=== PATIENT | male | born 1965 | race African-American/Black ===

== ENCOUNTER → 2018-06-15 | Outpatient (CLI) | payer MEDICAID | END | disposition home or self-care (01) | LOC: Rad HDHVI 08:21 | PROVIDERS: ATTEND Internal Medicine Cardiovascular Disease | DX: I07.1 Rheumatic tricuspid insufficiency (principal); I27.20 Pulmonary hypertension, unspecified; E86.1 Hypovolemia | CPT/HCPCS: 93306 ==

== ENCOUNTER → 2018-07-15 | Outpatient (CLI) | payer MEDICAID ==
[~2018-07-15] VITALS: Ht 172.7 cm; Wt 74.8 kg
== END | disposition home or self-care (01) ==
LOC: Rad HDHVI 07:59
PROVIDERS: ATTEND Internal Medicine Cardiovascular Disease
DX: S12.9XXA Fracture of neck, unspecified, initial encounter (principal); R55 Syncope and collapse; E86.1 Hypovolemia; X58.XXXA Exposure to other specified factors, initial encounter; Y93.89 Activity, other specified; Y92.89 Other specified places as the place of occurrence of the external cause; Y99.8 Other external cause status
CPT/HCPCS: 78452; 93017; 96374; A9500